=== PATIENT | male | born 1945 | race Caucasian/White ===

== ENCOUNTER 2024-03-24 16:00 | Outpatient (CLI) | payer MEDICARE | END 2024-03-24 16:01 | disposition home or self-care (01) | LOC: SLEEPLAB 16:00 | PROVIDERS: ATTEND Family Medicine | DX: G47.33 Obstructive sleep apnea (adult) (pediatric) (principal); R06.83 Snoring; G47.10 Hypersomnia, unspecified; I10 Essential (primary) hypertension; G47.00 Insomnia, unspecified; I49.3 Ventricular premature depolarization; I49.1 Atrial premature depolarization | CPT/HCPCS: 95810 ==